=== PATIENT | female | born 1995 | race African-American/Black ===

== ENCOUNTER 2021-08-23 09:40 | Emergency (ER) | payer OTHER, SELFPAY ==
[2021-08-23 10:04] VITALS: BP 103/61; PULSE 122; RESP 22; TEMP 38.4; O2SAT 97
--- NOTE | 2021-08-23 10:17 | ED.HA ---
HPI - Headache General Chief Complaint: Headache Stated Complaint: Migraine Time Seen by Provider: 08/23/21 10:17 Source: patient Mode of arrival: ambulatory Limitations: no limitations History of Present Illness HPI Narrative: 25-year-old female presents with complaint of headache, congestion, cough, body aches, fatigue for 3 days. Was not aware she had a fever until coming to urgent care. Taking Tylenol and ibuprofen to treat headache. Originally thought that headache was a migraine. Denies nausea vomiting diarrhea. Denies chest pain and shortness of breath. All systems reviewed and negative except as noted above. Related Data Home Medications Medication Instructions Recorded Confirmed metoclopramide HCl 5 mg tablet tablet 08/23/21 sumatriptan succinate 50 mg tablet tablet PO 08/23/21 valacyclovir 500 mg tablet tablet 08/23/21 Allergies Allergy/AdvReac Type Severity Reaction Status Date / Time No Known Allergies Allergy Verified 08/23/21 10:20 Review of Systems Review of Systems: CONSTITUTIONAL: Denies fever, chills, or sweats. Reports fatigue EYES: Denies visual changes, redness, or discharge. ENT: Reports rhinorrhea, congestion, sore throat. Denies otalgia. CARDIOVASCULAR: Denies chest pain, palpitations, or edema. RESPIRATORY: Reports cough. Denies dyspnea. GASTROINTESTINAL: Denies abdominal pain, nausea, vomiting, or diarrhea. GENITOURINARY: Denies dysuria or hematuria. SKIN: Denies rash or itching. MUSCULOSKELETAL: Denies back pain, joint pain, or myalgia. NEUROLOGIC: Reports headache. Denies numbness, or weakness. PSYCHIATRIC: Denies anxiety or depression. All other systems reviewed are negative, except as documented in HPI. PMFSH Comments At time of signature, agree with nursing past medical, surgical, social and family history. There is no relevant family history pertinent to the presenting complaint. Exam Narrative: GENERAL: This is a well-nourished, well-developed patient. Patient ill-appearing but no distress. HEAD: normocephalic, atraumatic. EYES: PERRL. Sclera clear/white. Vision is grossly intact. EARS: External ears normal, auditory canals clear and without drainage, TMs normal without perforation. Hearing grossly intact. NOSE: External nose normal with no obvious nasal discharge, nares without redness, no rhinorrhea. THROAT: Mucous membranes moist, posterior pharynx clear. NECK: Neck supple, non-tender without lymphadenopathy, masses or thyromegaly. CARDIOVASCULAR: Regular rate and rhythm without murmurs, gallops, or rubs. RESPIRATORY: Clear to auscultation. Breath sounds equal bilaterally. No wheezes, rales, or rhonchi. SKIN: warm, Dry, intact with no suspicious lesions or rash, good texture and turgor. NEURO: awake, alert, and oriented to person, place and time. There were no obvious focal neurologic abnormalities. EXTREMITIES: Normal range of motion to all extremities. She Course Course Level of Care: Express Care Visit Vital Signs Vital signs: Vital Signs Temperature 38.4 C H 08/23/21 10:04 Pulse Rate 122 H 08/23/21 10:04 Respiratory Rate 22 H 08/23/21 10:04 Blood Pressure 103/61 08/23/21 10:04 Pulse Oximetry 97 08/23/21 10:04 Oxygen Delivery Room Air 08/23/21 10:04 Temperature 38.4 C H 08/23/21 10:30 Pulse Rate 122 H 08/23/21 10:04 Respiratory Rate 22 H 08/23/21 10:04 Blood Pressure 103/61 08/23/21 10:04 Pulse Oximetry 97 08/23/21 10:04 Oxygen Delivery Room Air 08/23/21 10:04 Reviewed MDM - Headache MDM Narrative Medical decision making narrative: Patient is aware of diagnosis, understands and agrees to treatment plan. Anticipatory guidance given. Patient agrees to follow-up as directed and is aware of reasons to seek care at the emergency department. Portions of this record may have been created with voice recognition software Lab Data Labs: Lab Results 08/23/21 Range/Units 10:00 POC SARS CoV-2 Ag Positi
[2021-08-23 10:30] VITALS: TEMP 38.4
[2021-08-23] MEDS: ACETAMINOPHEN 500 MG TABLET 1000 MG PO (10:30)
== END 2021-08-23 10:38 | disposition home or self-care (01) ==
PROVIDERS: Emergency Provider Nurse Practitioner Family; PCP Family Medicine
DX: U07.1 COVID-19 (principal); J45.909 Unspecified asthma, uncomplicated
CPT/HCPCS: 87426; 87804; 99202; A9270; C9803; G0463